=== PATIENT | female | born 1955 | race Caucasian/White ===

== ENCOUNTER 2016-07-15 16:40 | Inpatient (IN) | payer OTHER ==
--- NOTE | ~2016-07-15 | CO ---
Unit #: [id number] #: [id number] Patient: NAVJOT BENOIT [id number] [facility] [address] [facility]. [place], [place] [address] [id number] I MR#: [id number] NAME: NAVJOT BENOIT ROOM: 213 Age: 60 Sex: F Admission Date: 07/16/2016 : 1955 Attending Physician: Amarjit Flores M.D. Primary Care Physician: Catarina Medrano M.D. Consultation Date: 07/17/2016 CONSULTATION REPORT REASON FOR CONSULTATION Followup. DISCUSSION Ms. Navjot Benoit is a 60-year-old white female, seen in room 213, bed 1 on 07/17/[address] [facility]. The patient was alert and oriented in time, place, and person. Reported decrease in confusion, feeling better. Denied any suicidal or homicidal ideation. Denied any psychotic symptom. Still having periods of confusion. The patient reports that she would like to go back to her detention. The patient's lithium level came back at 0.7. The patient was taken off from lithium, started on Zyprexa. Able to tolerate medication fairly well, slept good. REVIEW OF SYSTEMS Complete review of systems is unremarkable. MENTAL STATUS EXAMINATION Vital signs; temperature 97.5, pulse 50, respiratory rate 16, blood pressure 152/87, oxygen saturation 100%. General appearance, the patient dressed casually in hospital attire. Attention span and concentration, fair. Speech, regular rate and coherent. Oriented in time, place, and person. Mood and affect were labile. Thought process was circumstantial. Thought content, guarded, but denied any suicidal or homicidal ideation. Denied any psychotic symptom. Recent and remote memory, fair. Language, intact. Fund of knowledge, fair. Insight and judgment, fair to slightly impaired. DIAGNOSES 1. Psychiatric: Bipolar mood disorder, not otherwise specified, F31.89; delirium, resolved, F05; lithium toxicity. ASSESSMENT/PLAN 1. Supportive psychotherapy and psychoeducation provided to the patient. 2. Educated about benefits and side effects of medication and course and prognosis of illness. 3. Advised to not to start lithium again ever and continue with the above medication Zyprexa. If needed, consider further adjustment of medication. Please feel free to call if any questions, telephone #[phone]. Dictated by... Hussain Babb/maricel Unit #: [id number] #: [id number] Patient: NAVJOT BENOIT TD: 07/17/2016 23:28 JOB #: [id number] CONSULTATION REPORT Page 1 of 1 X Irineo Urbina MD X CONSULTATION REPORT
--- NOTE | ~2016-07-15 | CR211 ---
[facility] A Service of [facility] & [facility] RADIOLOGY TEXT RESULTS PATIENT: NAVJOT BARKER LOCATION: [facility] 213-01 : [birth year] UNIT #: [id number] AGE: [address]: Amarjit Flores MD SEX: F ORDER DR: [id number] [facility] [address] [place], [place] [address] [id number] E MR#: [id number] Acc #: [id number] NAME: NAVJOT BARKER : 1955 SEX: F STUDY DATE/TIME: 07/15/2016 16:39 UNIT: [facility] ROOM: STUDY DESCRIPTION: CR Ribs Uni 2 View W PA Ch Rt Attending Physician: Roosevelt Brady M.D. Referring Physician: Catarina Medrano M.D. Ordering Physician: Roosevelt Brady M.D. Primary Care Physician: Catarina Medrano M.D. MEDICAL IMAGING REPORT This report is preliminary unless electronic signature is present EXAM Right rib series. DATE OF EXAM 07/15/2016 HISTORY Trauma. Right posterior rib pain 4 days duration. Fall. Right posterior rib pain. FINDINGS AP radiograph of the chest presented with oblique views of the right ribs. There is incomplete evaluation of the upper right ribs due to lack of oblique views of the upper right thorax. Due to patient's condition, full imaging could not be obtained. Comparison to chest radiograph 11/17/2014. Patient is status post L1 through L3 posterior fusion with bilateral transpedicular screws and fixation rods at these levels. Intervertebral disc spacers L1-L2, L2-L3, L3-L4. The study was not tailored for assessment of the lumbar spine. The visualized orthopedic hardware is intact. There is mild levoscoliosis of the upper lumbar spine. The ribs appear intact in their visualized extent. No displaced fracture is seen. If patient has ongoing symptoms, given limitations of this examination, repeat imaging would be recommended. The heart is upper limits of normal in size. There is chronic elevation of the right hemidiaphragm. Linear atelectasis or scarring at the right lung base. Lungs are otherwise clear. No pleural effusion or pneumothorax. No suspicious nodule. Dictated by... Ralph Hines M.D. [facility]. [facility] A Service of [facility] RADIOLOGY TEXT RESULTS PATIENT: NAVJOT BARKER LOCATION: [facility] 213-01 : [birth year] UNIT #: [id number] AGE: [address]: Amarjit Flores MD SEX: F ORDER DR: THIS IS AN ELECTRONICALLY VERIFIED REPORT Ralph Hines M.D. at 07/16/2016 6:26 PM Tara TD: 07/15/2016 20:19 JOB #: [id number] MEDICAL IMAGING REPORT Page 1 of 1 COPY
--- NOTE | ~2016-07-15 | CO ---
Unit #: [id number] #: [id number] Patient: NAVJOT BENOIT [id number] [facility] [address] [facility]. [place], [place] [address] [id number] I MR#: [id number] NAME: NAVJOT BENOIT ROOM: 213 Age: 60 Sex: F Admission Date: 07/15/2016 : 1955 Attending Physician: Amarjit Flores M.D. Primary Care Physician: aCtarina Medrano M.D. Consultation Date: 07/16/2016 CONSULTATION REPORT REASON FOR CONSULTATION Delirium. HISTORY OF PRESENT ILLNESS Ms. Navjot Benoit is a 60-year-old female seen in room 213, bed 1 on 07/16/2016 at [facility]. The patient was admitted with a chief complain of weakness on 07/15/2016. The patient was having problem with confusion. The patient was having problem with the balance. The patient reports that she was confused but feeling better now. The patient reported that she is a resident of a skilled nursing and would like to go back as soon as she did better. The patient was on lithium and had problem with diarrhea, and her lithium level was high, 1.5, subsequently lithium was stopped. The patient reports a history of depression and anxiety. Currently denied any suicidal or homicidal ideation Denied any psychotic symptom. PAST PSYCHIATRIC HISTORY Remarkable for history of depression and bipolar disorder. No history of any inpatient treatment or any suicide attempt. MEDICATION HISTORY History of coronary artery disease, gastroesophageal reflux disease, irritable bowel syndrome, degenerative disk disease. MEDICATIONS The patient is on lithium, Klonopin, Desyrel, Norvasc, and Robaxin. ALLERGIES To morphine, codeine, and azithromycin. FAMILY HISTORY The patient has poor support. Lives as a resident of skilled nursing. No history of abuse. No history of any substance abuse. REVIEW OF SYSTEMS Complete review of systems: Unremarkable. MENTAL STATUS EXAMINATION Vital Signs: 97.8, 66, 18, 143/113. Oxygen saturation 97%. General Appearance: The patient dressed casually in hospital attire. Attention span, concentration: Fair. Speech slow. Oriented in place and person. Mood and affect: Sad, dysphoric, flat. Thought process: Circumstantial. Thought content: Guarded, but denied any suicidal or homicidal ideation. Unit #: [id number] #: [id number] Patient: NAVJOT BENOIT Denied any auditory or visual hallucination. Recent and remote memory: Poor. Language: Intact. Fund of knowledge fair. Insight and judgment: Fair to slightly impaired. DIAGNOSIS PSYCHIATRIC: Delirium, F05, resolved. Bipolar mood disorder not otherwise specified, F31.89 SECONDARY: Deferred. MEDICAL: As per H and P. Please refer to H and P. STRESSORS: Psychosocial stressor. ASSESSMENT/PLAN 1. Supportive psychotherapy, psychoeducation provided to the patient. 2. Educated about benefits and side effects of medication and course and prognosis of illness. 3. Advised to discontinue lithium and recommending at this time not to start lithium again because of lithium toxicity, and also the patient switched to alternative medication. Advised Zyprexa 5 mg at bedtime for mood stabilization. Continue with the other medications, Desyrel 100 mg at bedtime, Klonopin 0.5 mg twice daily. We will continue to follow. Please feel free to call if any question, telephone #[phone]. Dictated by... Hussain Babb/carolynn TD: 07/17/2016 09:48 JOB #: [id number] CONSULTATION REPORT Page 1 of 1 X Irineo Urbina MD X CONSULTATION REPORT
--- NOTE | ~2016-07-15 | CT52 ---
[facility] A Service of [facility] & [facility] RADIOLOGY TEXT RESULTS PATIENT: NAVJOT BARKER LOCATION: C2A - : 59 UNIT #: [id number] AGE: [address]: Amarjit Flores MD SEX: F ORDER DR: [id number] [facility] [address] [facility]. [place], [place] [address] [id number] I MR#: [id number] Acc #: [id number] NAME: NAVJOT BARKER : 1955 SEX: F STUDY DATE/TIME: 07/15/2016 17:03 UNIT: C2A ROOM: 213 STUDY DESCRIPTION: CT Cervical Spine Wo Cont Attending Physician: Sudarshan Muse M.D. Referring Physician: Catarina Medrano M.D. Ordering Physician: Roosevelt Brady M.D. Primary Care Physician: Catarina Medrano M.D. MEDICAL IMAGING REPORT This report is preliminary unless electronic signature is present EXAM CT cervical spine without IV contrast COMPARISON Cervical spine radiographs October 19, 2006. A 60-year-old female with neck pain for [address] exam was performed with one or more of the following radiation dose reduction techniques: automatic exposure control, adjustment of mA and/or kV according to patient size, and iterative reconstruction. Axial CT imaging of the cervical spine was performed without IV contrast. Coronal sagittal reformats were constructed. FINDINGS Lack of IV contrast limits evaluation of adenopathy and vasculature. This also limits evaluation of soft tissues. Calcifications in the bilateral cervical carotid arteries noted near the carotid bulbs. Visualized airways are widely patent. No acute abnormality in the pulmonary apices. No acute fracture or dislocation. Mild multilevel degenerative facet disease and uncinate hypertrophy of the cervical spine. Mild disc height loss C5-C6 and C6-C7. Uncinate hypertrophy at C5-C6 is causing mild neural foraminal narrowing on the left. Small posterior disc osteophyte complex also noted at C5-C6, and there is likely a small posterior disc protrusions to C6-C7. IMPRESSION 1. No acute fracture, subluxation or suspicious osseous lesions of the cervical spine. 2. Bilateral minimal focal cervical carotid artery calcifications. 3. Multilevel degenerative changes of the cervical spine, most STS. [facility] A Service of [facility] & [facility] RADIOLOGY TEXT RESULTS PATIENT: NAVJOT BARKER LOCATION: C2A 213-01 : [birth year] UNIT #: [id number] AGE: [address]: Amarjit Flores MD SEX: F ORDER DR: significant at C5-C6 and C6-C7 where there is degenerative disc disease with suggestion of a small posterior disc protrusion at C6-C7 with small posterior disc osteophyte complex noted at C5-C6. There is also mild bony neural foraminal narrowing on the left at C5-C6 due to uncinate hypertrophy. Dictated by... Leroy Hansen M.D. THIS IS AN ELECTRONICALLY VERIFIED REPORT Leroy Hansen M.D. at 07/20/2016 7:32 PM Sadi TD: 07/15/2016 22:08 JOB #: [id number] MEDICAL IMAGING REPORT Page 1 of 1 COPY
--- NOTE | ~2016-07-15 | HP ---
Unit #: [id number] #: [id number] Patient: NAVJOT BARKER [id number] [address] [address] [id number] E MR#: [id number] NAME: NAVJOT BARKER ROOM: Age: 60 Sex: F Admission Date: 07/15/2016 : 1955 Attending Physician: Roosevelt Brady M.D. Referring Physician: Catarina Medrano M.D. Primary Care Physician: Catarina Medrano M.D. HISTORY AND PHYSICAL CHIEF COMPLAINT Weakness. HISTORY OF PRESENT ILLNESS The patient is a 60-year-old female with history of depression, coronary artery disease, gastroesophageal reflux disease, irritable bowel syndrome, who was brought to the emergency room complaining of generalized weakness. The patient stated the patient was released from the assisted on 05/15/2016 and went to the home. The patient stated the patient is having diarrhea three to four times a day for the last three weeks. The patient was also complaining of the nausea and vomiting associated with the diarrhea. The patient also complains of generalized weakness and feeling dizzy when standing up. The patient was found to have UTI and has been admitted for the above reasons. The patient's lithium level is a little high, it is 1.5 and is on hold. PAST MEDICAL HISTORY 1. History of depression. 2. Coronary artery disease. 3. Gastroesophageal reflux disease. 4. Irritable bowel syndrome. 5. Degenerative disk disease. PAST SURGICAL HISTORY 1. Cholecystectomy. 2. Partial hysterectomy. 3. Appendectomy. 4. Spinal fusions. HOME MEDICATIONS 1. Pitkin. 2. Klonopin. 3. Desyrel. 4. Norvasc. 5. Robaxin. ALLERGIES 1. Morphine. 2. Codeine. 3. Azithromycin. SOCIAL HISTORY She does not drink but does have a more than [id number] history of smoking. Unit #: [id number] #: [id number] Patient: NAVJOT BARKER FAMILY HISTORY Reviewed and none. REVIEW OF SYSTEMS A 14-point review of systems performed and only pertinent positive findings as described above, remaining are negative. PHYSICAL EXAMINATION VITAL SIGNS: Temperature 97.8, pulse 68, respiratory rate 18, blood pressure 140/72. GENERAL: Patient is lying on the bed not in acute distress. HEENT: Atraumatic, normocephalic. Pupils equal, round, and reactive to light and accommodation. Dry mucous membrane. NECK: Supple. LUNGS: Decreased air entry at the bases. HEART: Regular rate and rhythm. ABDOMEN: Soft, positive bowel sounds. EXTREMITIES: No cyanosis, no clubbing. NEUROLOGIC: Alert, awake, oriented. No gross focal motor deficit. DIAGNOSTIC STUDIES LABORATORY: Glucose 121, BUN 15, creatinine 0.9, sodium 132, potassium 3.4, chloride 101, bicarb 20, calcium 10.5, total bilirubin 1.2, AST 25, ALT 26, alkaline phosphatase 97. Amylase 21, lipase 26. [place] 1.5. WBC 19.8, hemoglobin 17.0, hematocrit 50.3, platelets 324. UA shows 2+ leukocyte esterase, positive nitrite, 3+ protein, 100-200 urine wbc's, 4+ urine bacteria, many squamous cells. ASSESSMENT AND PLAN 1. Urinary tract infection. 2. Hypokalemia. 3. Hyponatremia. 4. [place] toxicity. PLAN 1. Admit patient as observation with telemetry. 2. Continue with IV fluids normal saline at 25 mL per hour. 3. Order lithium. 4. Psychiatric evaluation. 5. Replace potassium, K-Dur 20 mEq. Check lactic acid, if high then initiate sepsis protocol and repeat the labs again in the morning. 6. Further recommendations will follow. Dictated by Hussain Troy/jae TD: 07/15/2016 20:33 JOB #: [id number] Unit #: [id number] #: [id number] Patient: NAVJOT BARKER HISTORY AND PHYSICAL Page 1 of 1 X X HISTORY AND PHYSICAL
--- NOTE | ~2016-07-15 | DS ---
Unit #: [id number] #: [id number] Patient: NAVJOT BARKER [id number] [address] [place], [place] [address] [id number] I MR#: [id number] NAME: NAVJOT BARKER ROOM: 213 Age: 60 Sex: F Admission Date: 07/15/2016 : 1955 Discharge Date: 07/17/2016 Attending Physician: Amarjit Flores M.D. Referring Physician: Catarina Medrano M.D. Primary Care Physician: Catarina Medrano M.D. DISCHARGE SUMMARY DISCHARGE DIAGNOSES 1. Toxic metabolic encephalopathy secondary to urinary tract infection. 2. Escherichia coli urinary tract infection. 3. [place] toxicity. 4. Hypokalemia with hyponatremia. 5. Frequent falls. 6. Bipolar mood disorder. 7. History of depression. 8. History of coronary artery disease. 9. History of gastroesophageal reflux disease. 10. History of irritable bowel disease. 11. History of degenerative disc disease. SO[employer]IST Dr. Urbina - Psychiatry. PROCEDURES None. IMAGING 1. X-ray of ribs on 07/15/16. Impression - visualized orthopedic hardware is intact. Mild levoscoliosis of the upper lumbar spine. Ribs appear intact in their visualized extent. No displaced fracture seen. Lungs are otherwise clear. Heart is upper limits of normal size. No pleural effusion or pneumothorax. No suspicious nodules. 2. CT of the head without contrast. Impression - no acute intracranial abnormality. Findings suggestive of caries of the two posterior most right maxillary teeth. Small mucous cyst versus polyp of the left maxillary sinus. 3. CT cervical. Impression - no acute fracture, subluxation or suspicious osseous lesions of the cervical spine. Bilateral minimal focal cervical carotid artery calcifications. Multilevel degenerative changes of the cervical spine. LABORATORY On the day of discharge, the patient's labs are glucose 97, BUN 9, creatinine 0.9, sodium 140, potassium 3.0, chloride 108, CO2 21, calcium 10.3, magnesium 2.2, total protein 7.1, albumin 4.0, total bilirubin 0.6, AST of 19, ALT of 19, alkaline phos. of 78. TSH is 1.36. [place] 0.7. CBC with WBC of 12.2, RBC 5.61, hemoglobin 15.4, hematocrit 48.1, MCV 85.7, MCH 27.5, MCHC 32.0, RDW 15.9, platelets 254, MPV 9.0. MICROBIOLOGY Unit #: [id number] #: [id number] Patient: NAVJOT BARKER No stool culture was sent for C. diff but UTI had E. coli sensitive to third generation cephalosporin. HOSPITAL COURSE The patient is a 60-year-old female with past medical history of chronic depression, bipolar disorder, coronary artery disease, gastroesophageal reflux disease, irritable bowel disease, degenerative disc disease, who was released from the detention May 15, 2016, to live at home. The patient states that she has had diarrhea three to four times a day for the past three weeks prior to admission. She was also complaining of nausea and vomiting associated with the diarrhea. The patient had complained of generalized weakness and feeling dizzy. She also tells me that she had frequent falls at home. She was found in her own stool at one point. On admission, she had significant leukocytosis of 19,000. Urinalysis was significant for UTI and lithium was elevated at 1.5. She was admitted for toxic metabolic encephalopathy with UTI as well as lithium toxicity, hypokalemia and hyponatremia. She received electrolyte replacement as well as IV fluid. She was treated for a UTI transiently with Rocephin and with sensitivity and E. coli sensitive to third generation cephalosporin. She will be discharged with Omnicef. At this time, patient is back to her baseline mental status. She was seen in consultation by Dr. Urbina given her bipolar/depression disorder and lithium toxicity with frequent falls and hyponatremia. The choice was made by Dr. Urbina to stop lithium and to start on Zyprexa for mood stability. At this time, patient is stable to be discharged back to [facility]. DISCHARGE ACTIVITY The patient is to resume activities of physical and occupational therapy. DIET Resume back to a heart healthy diet. FOLLOWUP The patient is to follow up with PCP at the detention facility within one to two weeks. DISCHARGE MEDICATIONS 1. Trazodone 150 mg orally at bedtime. 2. Klonopin 0.5 mg orally twice daily. 3. Norvasc 10 mg orally daily. 4. Lasix will be stopped due to the hyponatremia and the frequent falls. 5. TriCor 48 mg orally daily. 6. Hydrocodone with acetaminophen, one tablet every six hours as needed for moderate to severe pain. Prescription for 12 was given. 7. Omeprazole 20 mg orally every morning. 8. Zyprexa 5 mg orally at bedtime. 9. Omnicef 300 mg orally twice daily for the next five days. 10. She is also to stop the lithium that she was taking previously. Dictated by... Gustavo Birmingham PA-C for Amarjit Flores M.D. Unit #: [id number] #: [id number] Patient: NAVJOT BARKER ROBERT/mary TD: 07/17/2016 11:47 JOB #: [id number] DISCHARGE SUMMARY Page 1 of 1 X X DISCHARGE SUMMARY
--- NOTE | ~2016-07-15 | CT71 ---
[facility] A Service [facility] RADIOLOGY TEXT RESULTS PATIENT: NAVJOT BARKER LOCATION: [facility] : [birth year] UNIT #: [id number] AGE: [address]: Amarjit Flores MD SEX: F ORDER DR: [id number] [place] [id number] [facility]. [place], [place] [address] [id number] I MR#: [id number] Acc #: [id number] NAME: NAVJOT BARKER : 1955 SEX: F STUDY DATE/TIME: 07/15/2016 16:55 UNIT: A ROOM: [facility] STUDY DESCRIPTION: CT Head Wo Contrast Attending Physician: Amarjit Flores M.D. Referring Physician: Catarina Medrano M.D. Ordering Physician: Roosevelt Brady M.D. Primary Care Physician: Catarina Medrano M.D. MEDICAL IMAGING REPORT This report is preliminary unless electronic signature is present EXAM CT head without IV contrast COMPARISON October 18, 2006. INDICATION 60-year female with multiple falls, dizziness and hallucination in last 3 weeks. Patient also reports nausea in this time period. TECHNIQUE This CT exam was performed with one or more of the following radiation dose reduction techniques: automatic control, adjustment of mA and/or kV according to patient size, and iterative reconstruction. FINDINGS Mastoid air cells, middle ears visualized paranasal sinuses are well-aerated. There is a small mucous retention cyst versus polyp in the left maxillary sinus. There are apparent caries of the two posterior most right maxillary teeth, incomplete imaged on this study. No acute fractures or suspicious osseous lesions. Normal cerebral volume. No mass effect. No abnormal extraaxial fluid collection. No acute intracranial hemorrhage. No convincing evidence of acute ischemia. IMPRESSION 1. No acute intracranial abnormality. Findings suggestive of caries of the two posterior most right maxillary teeth. Clinical correlation recommended. 2. Small mucous retention cyst versus polyp of the left maxillary sinus. Dictated by... Leroy Hansen M.D. [facility] A Service [facility] RADIOLOGY TEXT RESULTS PATIENT: NAVJOT BARKER LOCATION: [facility] : [birth year] UNIT #: [id number] AGE: [address]: Amarjit Flores MD SEX: F ORDER DR: THIS IS AN ELECTRONICALLY VERIFIED REPORT Leroy Hansen M.D. at 07/20/2016 7:30 PM KATHARINE/odette TD: 07/15/2016 19:49 JOB #: [id number] MEDICAL IMAGING REPORT Page 1 of 1 COPY
[2016-07-15 15:06] LABS: BASOPHIL# 0.3 X10e3 (0-0.3); BASOPHIL% 1.4 % (0-2.5); EOSINOPHIL# 0.2 X10e3 (0-0.7); EOSINOPHIL% 1.2 % (0.0-7.0); HEMATOCRIT 52.3 % (35.0-45.0); MEAN CELL VOLUME 84.7 FL (83-96); MEAN CORPUSCULAR HEMOGLOBIN 27.5 PG (28-34); MEAN CORPUSCULAR HGB CONC 32.4 g/dL (30-36); MEAN PLATELET VOLUME 9.1 FL (6.5-11.5); MONOCYTE# 1.5 X10e3 (0-1.0); MONOCYTE% 7.4 % (3.0-12.0); NEUTROPHIL# 14.8 X10e3 (1.5-7.1); PLATELET COUNT 324 X10e3 (140-420); RED BLOOD COUNT 6.18 X10e (3.90-5.30); RED CELL DISTRIBUTION WIDTH 15.5 % (11.0-15.5); WHITE BLOOD COUNT 19.8 X10e3 (4.0-10.5)
[2016-07-15 15:10] LABS: DIFF IND YES
[2016-07-15 15:37] LABS: ALBUMIN SERUM 4.5 g/dL (3.5-5.0); BILIRUBIN, DIRECT 0.3 mg/dL (0.0-0.2); BILIRUBIN,INDIRECT 0.9 mg/dL (0.0-0.9); BILIRUBIN,TOTAL 1.2 mg/dL (0.2-2.0); BUN/CREATININE RATIO 16.66; CALCIUM SERUM 10.5 mg/dL (8.4-10.2); CREATININE SERUM 0.9 mg/dL (0.6-1.4); GLOM FILT RATE Estimated 70.5 mL/min (>60); POTASSIUM 3.4 mmol/L (3.5-5.1); PROTEIN TOTAL SERUM 7.9 g/dL (6.0-8.3)
[2016-07-15 15:44] LABS: URINE SOURCE CLEAN CATCH
[2016-07-15 15:54] LABS: URINE APPEARANCE TURBID; URINE BLOOD NEG (NEG); URINE COLOR DK YELLOW; URINE GLUCOSE NEG (NEG); URINE KETONE TRACE (NEG); URINE LEUKOCYTE ESTERASE 2+ (NEG); URINE NITRATE POS (NEG); URINE PH 6.5 (5-8); URINE PROTEIN 3+ (NEG); URINE SPECIFIC GRAVITY 1.021 (1.003-1.035)
[2016-07-15 15:56] LABS: CULTURE INDICATED? YES; URINE BACTERIA AUWI 4+ (NEGATIVE); URINE SQUAMOUS EPITHELIAL CELL MANY /[HPF]; UWBCS1 AUWI 100-200 (0-5)
[2016-07-15 16:02] LABS: PLATELET ESTIMATE NORMAL (NORMAL); RBC NORMAL YES
[2016-07-15 16:17] LABS: U HYALINE CASTS AUWI 0-2 /[LPF]; URINE BILIRUBIN NEG (NEG)
[~2016-07-15 16:40] MED LIST: AMITRIPTYLINE H25 MG PO; AMITRYPTYLINE; AMLODIPINE BESY10 MG PO; ATIVAN PO; BACTRIM DS TABL1 TA1 PO; BIO-STATIN; CIPRO PO; DESYREL150 M1; DESYREL150 M1 PO; FAMOTIDINE PO; FENOFIBRATE48 MG PO; FLEXERIL10 MG PO; FLORASTOR250 M1 PO; HCTZ; HYDROCODON-ACE1 EAC4 PO; HYDROXYZINE PAM25 MG; IBUPROFEN400 MG PO; IBUPROFEN800 MG PO; IMODIUM2 MG PO; KLONOPIN PO; KLONOPIN0.5 MG PO; KLONOPIN1 MG PO; KLOR-CON PO; LASIX; LASIX PO; LASIX20 MG PO; LITHIUM; LITHIUM CARBON300 M1 PO; LITHIUM PO; LORTAB 7.5-5001 TAB PO; MEDROL DOSE PAK; METFORMIN HCL500 M1 PO; METHADONE HCL10 MG PO; MICRO-K10 ME2; MIRTAZAPINE30 MG; MOBIC15 MG PO; NAPROSYN500 MG PO; NORCO 10/3251 TAB; NORVASC; NORVASC PO; NORVASC10 MG; NORVASC10 MG PO; NYSTATIN1 EAC1 MC; OMEPRAZOLE40 M1 PO; ORAJEL7 G1 MM; POTASSIUM CHLO10 ME1 PO; PRILOSEC40 MG PO; ROBAXIN 750750 MG; ROBAXIN PO; SEROQUEL; TRAZODONE; TYLENOL #3 PO; VICODIN; VOLTAREN50 MG PO
[2016-07-15] MEDS ORDERED: KLONOPIN0.5 MG PO (18:11)
[2016-07-15] MEDS ORDERED: DESYREL150 M1 PO (18:12)
[2016-07-15] MEDS ORDERED: LITHIUM CARBON300 M2 PO (18:13)
[2016-07-15] MEDS ORDERED: LASIX20 MG PO (18:13)
[2016-07-15] MEDS ORDERED: LITHIUM CARBON600 MG PO (18:14)
[2016-07-15] MEDS ORDERED: LORTAB 10-3251 EACH PO (18:15)
[2016-07-15] MEDS ORDERED: NORVASC10 MG PO (18:16)
[2016-07-15] MEDS ORDERED: TRICOR PO (18:17)
[2016-07-15] MEDS ORDERED: OMEPRAZOLE20 M2 PO (18:17)
[2016-07-16 05:51] LABS: BASOPHIL# 0.2 X10e3 (0-0.3); BASOPHIL% 1.4 % (0-2.5); EOSINOPHIL# 0.2 X10e3 (0-0.7); EOSINOPHIL% 1.1 % (0.0-7.0); HEMATOCRIT 43.9 % (35.0-45.0); LYMPHOCYTE# 3.4 X10e3 (1.0-3.5); LYMPHOCYTE% 20.6 % (17.0-45.0); MEAN CELL VOLUME 84.9 FL (83-96); MEAN CORPUSCULAR HEMOGLOBIN 28.3 PG (28-34); MEAN CORPUSCULAR HGB CONC 33.3 g/dL (30-36); MEAN PLATELET VOLUME 9.2 FL (6.5-11.5); MONOCYTE# 1.4 X10e3 (0-1.0); MONOCYTE% 8.2 % (3.0-12.0); NEUTROPHIL# 11.3 X10e3 (1.5-7.1); NEUTROPHIL% 68.7 % (40-75); PLATELET COUNT 248 X10e3 (140-420); RED BLOOD COUNT 5.17 X10e (3.90-5.30); RED CELL DISTRIBUTION WIDTH 15.8 % (11.0-15.5); WHITE BLOOD COUNT 16.5 X10e3 (4.0-10.5)
[2016-07-16 05:56] LABS: HEMOGLOBIN 14.6 gm/dL (12.0-16.0)
[2016-07-16 05:57] LABS: DIFF IND NO
[2016-07-16 06:16] LABS: BUN/CREATININE RATIO 14.44; CALCIUM SERUM 9.9 mg/dL (8.4-10.2); CREATININE SERUM 0.9 mg/dL (0.6-1.4); GLOM FILT RATE Estimated 70.5 mL/min (>60); POTASSIUM 3.6 mmol/L (3.5-5.1)
[2016-07-17 08:45] LABS: HEMATOCRIT 48.1 % (35.0-45.0); HEMOGLOBIN 15.4 gm/dL (12.0-16.0); MEAN CELL VOLUME 85.7 FL (83-96); MEAN CORPUSCULAR HEMOGLOBIN 27.5 PG (28-34); RED BLOOD COUNT 5.61 X10e (3.90-5.30); RED CELL DISTRIBUTION WIDTH 15.9 % (11.0-15.5); WHITE BLOOD COUNT 12.2 X10e3 (4.0-10.5)
[2016-07-17 09:15] LABS: BILIRUBIN,TOTAL 0.6 mg/dL (0.2-2.0); CALCIUM SERUM 10.3 mg/dL (8.4-10.2); CREATININE SERUM 0.9 mg/dL (0.6-1.4); GLOM FILT RATE Estimated 70.5 mL/min (>60); PROTEIN TOTAL SERUM 7.1 g/dL (6.0-8.3)
== END 2016-07-17 14:32 | DRG 689 ==
LOC: CED 16:40 → CEDOF 19:16 → C2A 21:28 → CEDOF 07-17 11:56 → C2A 07-17 11:58
PROVIDERS: Emergency Medicine; Family Medicine; Internal Medicine
DX: N39.0 Urinary tract infection, site not specified (principal); G92 Toxic encephalopathy; E87.1 Hypo-osmolality and hyponatremia; B96.20 Unspecified Escherichia coli [E. coli] as the cause of diseases classified elsewhere; T43.595A Adverse effect of other antipsychotics and neuroleptics, initial encounter; E87.6 Hypokalemia; Z91.81 History of falling; F31.9 Bipolar disorder, unspecified; I25.10 Atherosclerotic heart disease of native coronary artery without angina pectoris; K21.9 Gastro-esophageal reflux disease without esophagitis; K58.0 Irritable bowel syndrome with diarrhea; Z90.49 Acquired absence of other specified parts of digestive tract; Z90.711 Acquired absence of uterus with remaining cervical stump; Z88.1 Allergy status to other antibiotic agents; Z88.5 Allergy status to narcotic agent; F17.210 Nicotine dependence, cigarettes, uncomplicated; M50.33 Other cervical disc degeneration, cervicothoracic region
CPT/HCPCS: 70450; 71101; 72125; 80048; 80053; 80076; 80178; 81003; 82150; 82607; 83605; 83690; 83735; 84443; 85025; 85027; 87086; 87088; 87186; 94760; 97110; 97116; 97162; 97167; 97530; 97535; 99285; J0696; J1650